=== PATIENT | male | born 1990 | race Caucasian/White ===

== ENCOUNTER 2021-01-10 11:50 | Emergency (ER) | payer OTHER, SELFPAY ==
[2021-01-10 12:05] VITALS: BP 142/84; PULSE 79; RESP 18; TEMP 37; O2SAT 98; BMI 43.5
--- NOTE | 2021-01-10 12:38 | HMH.EDUTC ---
[facility] Disposition Clinical Impression: Nausea & vomiting Qualifiers: Vomiting type: unspecified Vomiting Intractability: unspecified Qualified Code(s): R11.2 - Nausea with vomiting, unspecified Disposition: Home, Self-Care Condition on Discharge: Good Instructions: Nausea and Vomiting-Adult, Diarrhea, Ondansetron, Dicyclomine Additional Instructions: ? Avoid fruit juices, as these do not replace minerals and can actually increase diarrhea. ? Children and adults can use sports drinks to replenish electrolytes. Younger children and infants should use products formulated for children, like oral rehydration solutions. ? Eat food in small amounts and let your stomach recover. ? Get lots of rest. You may feel tired or weak. ? No greasy or fried foods for the next 24-48 hours BRAT diet Bananas Rice Apples and [place] ? Make sure to drink plenty of liquids ? Return if needed ? Straight to ER if any life threatening symptoms ? Zofran as prescribed ? You was given an outpatient order for diarrhea panel, please collect specimen and bring back to outpatient lab then call back to the [facility] or follow up with family doctor for results ? Follow up with family doctor in the next 48-72 hours if no improvement or any worsening of symptoms Prescriptions: Dicyclomine HCl [Bentyl 10mg capsule] 10 mg PO TID PRN #15 cap PRN Reason: Cramping Transmission Status: Pending to [facility] # ondansetron HCL [Ondansetron 8mg tab*] 8 mg PO TIDP PRN #12 tab PRN Reason: Nausea Transmission Status: Pending to [facility] # Referrals: PCP,No [Primary Care Provider] - As needed Forms: Work/School Release Time of Disposition: 13:27 Medical Decision Making - Roland Inquiry Pt receiving controlled substance: No Roland was queried for this patient: No Vital Signs: 01/10/21 12:05 Temperature 98.6 F Temperature Source Oral Pulse Rate [Right Brachial] 79 Respiratory Rate 18 Blood Pressure [Right Arm] 142/84 H Blood Pressure Mean [Right Arm] 103 Blood Pressure Source [Right Arm] Automatic Cuff Blood Pressure Position [Right Arm] Sitting 02 Sat by Pulse Oximetry 98 Oxygen Delivery Method Room Air Orders (Tests/Meds): ED MEDICATIONS Discontinued Medications Generic Name Dose Route Start Last Admin Trade Name Freq PRN Reason Stop Dose Admin Dicyclomine HCl 10 mg 01/10/21 12:38 01/10/21 12:44 Dicyclomine 10mg Capsule PO 01/10/21 12:39 10 mg ONCE ONE Administration Ondansetron HCl 4 mg 01/10/21 12:38 01/10/21 12:44 Ondansetron 4mg Odt SL 01/10/21 12:39 4 mg ONCE ONE Administration Medical Decision Narrative: Patient state that he is feeling much better after medication [facility] HPI - General Stated complaint: Nausea; stomach pain Time Seen by Provider: 01/10/21 12:38 Mode of Arrival: Ambulatory Source of Information: Patient Limitations: No Limitations Description of Symptoms (Recalled from Triage Doc. by RN): PATIENT C/O NAUSEA, VOMITING, AND ABDOMINAL CRAMPING SINCE 0300 THIS AM HEENT Symptoms (Recalled from RN notes): No Resp Symptoms (Recalled from RN notes): No Skin Symptoms (Recalled from RN notes): No MS Symptoms (Recalled from RN notes): No Functional Status (Recalled from RN notes): WNL - History of Present Illness Provider Complaint: Patient state that he has been having some nausea and vomiting along with cramping like feeling in his upper abdominal area since about 6am this morning State that he hasnt had any diarrhea yet but cramping like he may have to go soon States that he also has GERD but not taking any medications at this time - Related Data Previous Rx's Medication Instructions Recorded hydroxyzine pamoate 25 mg capsule 25 mg PO DAILY PRN #30 cap 12/05/17 Cyclobenzaprine HCl [Flexeril 10mg 10 mg PO TIDP PRN #30 tablet 11/16/18 tablet] Ibuprofen [Ibuprofen 600mg 600 mg PO Q6HP PRN #40 tab 11/16/18 Tablet] Dicyclomine HCl [Bentyl 10mg 10 mg PO T
[2021-01-10 13:34] VITALS: BP 142/84; PULSE 79; RESP 18; TEMP 37; O2SAT 98
== END 2021-01-10 13:40 | disposition home or self-care (01) ==
PROVIDERS: Emergency Provider Nurse Practitioner
DX: R11.2 Nausea with vomiting, unspecified (principal); K21.9 Gastro-esophageal reflux disease without esophagitis; F41.8 Other specified anxiety disorders; F17.210 Nicotine dependence, cigarettes, uncomplicated; Z88.0 Allergy status to penicillin; Z88.2 Allergy status to sulfonamides
CPT/HCPCS: 99202; G0463

== ENCOUNTER → 2021-01-10 16:01 | Outpatient (CLI) | payer OTHER, SELFPAY ==
[2021-01-10 16:05] LABS: Adenovirus F 40/41, stool Not Detected (NotDetected); Astrovirus Not Detected (NotDetected); Campylobacter Not Detected (NotDetected); Clostridium Difficile A/B, PCR Not Detected (NotDetected); Cryptosporidium Not Detected (NotDetected); Cyclospora Cayetanesis Not Detected (NotDetected); Entamoeba histolytica Not Detected (NotDetected); Enteroaggregative E coli Not Detected (NotDetected); Enteropathogenic E coli Not Detected (NotDetected); Enterotoxigenic E coli Not Detected (NotDetected); Giardia lamblia Not Detected (NotDetected); Plesimonas Shigalloides, PCR Not Detected (NotDetected); Rotavirus A Not Detected (NotDetected); Salmonella, PCR Not Detected (NotDetected); Sapovirus Not Detected (NotDetected); Shiga-like toxin E coli Not Detected (NotDetected); Shigella Enterovasive E coli Not Detected (NotDetected); Vibrio Cholerae Not Detected (NotDetected); Vibrio, PCR Not Detected (NotDetected); Yersinia Entercolitica, PCR Not Detected (NotDetected)
[2021-01-10 19:34] LABS: Norovirus Detected (NotDetected)
== END ==
PROVIDERS: Visit Provider Nurse Practitioner
DX: R19.7 Diarrhea, unspecified (principal); A08.11 Acute gastroenteropathy due to Norwalk agent
CPT/HCPCS: 87507

== ENCOUNTER → 2021-11-01 14:53 | Outpatient (CLI) | payer OTHER, SELFPAY | PROVIDERS: Visit Provider Nurse Practitioner Family | DX: Z20.822 Contact with and (suspected) exposure to COVID-19 (principal) | CPT/HCPCS: 87275; 87276; C9803; U0003; U0005 ==

== ENCOUNTER → 2021-11-06 13:28 | Outpatient (CLI) | payer OTHER, SELFPAY | PROVIDERS: Visit Provider Nurse Practitioner | DX: Z20.822 Contact with and (suspected) exposure to COVID-19 (principal) | CPT/HCPCS: C9803; U0003; U0005 ==

== ENCOUNTER 2022-04-01 12:53 | Emergency (ER) | payer OTHER, SELFPAY ==
[2022-04-01 14:06] VITALS: BP 123/87; PULSE 85; RESP 17; TEMP 37.1; O2SAT 98; BMI 43.0
--- NOTE | 2022-04-01 14:32 | HMH.EDUTC ---
[facility] [place] Clinical Impression: Stye Qualifiers: Laterality: left Eyelid: upper Qualified Code(s): H00.014 - Hordeolum externum left upper eyelid Disposition: Home, Self-Care Condition on Discharge: Good Instructions: DI for Hordeolum, Hordeolum, Erythromycin Ophthalmic Additional Instructions: 1. Use warm compress... 2. Clean your eyelid with mild soap and water... 3. You may Use a warm tea bag this may help area come to head 4. Take [id number] painkillers like Motrin and/or Tylenol as directed on package 5. Avoid wearing contact lenses... 6. Use antibiotic ointments as prescribed 7. Massage the area to promote drainage... If no improvement follow up with the Eye Doctor for further evaluation and treatment Prescriptions: Erythromycin Base [Erythromycin 1gm opth ointment] 1 applic OP QID 7 Days #2 gm Transmission Status: Pending to [facility] #[id number] Referrals: Provider,Referral, MD [Primary Care Provider] - As needed Time of Disposition: 14:45 Medical Decision Making - Roland Inquiry Pt receiving controlled substance: No Roland was queried for this patient: No Vital Signs: 04/01/22 14:06 Temperature 98.7 F Temperature Source Oral Pulse Rate [Left Radial] 85 Respiratory Rate 17 Blood Pressure [Right Arm] 123/87 Blood Pressure Mean [Right Arm] 99 02 Sat by Pulse Oximetry 98 [facility] HPI - General Stated complaint: redness, swelling lt eye Time Seen by Provider: 04/01/22 14:32 Source of Information: Patient, Parent(s) Description of Symptoms (Recalled from Triage Doc. by RN): patient comes in today with his mother. patient complains of left swollen eye lid. began 2-3 days ago HEENT Symptoms (Recalled from RN notes): Yes Resp Symptoms (Recalled from RN notes): No Skin Symptoms (Recalled from RN notes): Yes MS Symptoms (Recalled from RN notes): No Functional Status (Recalled from RN notes): wnl - History of Present Illness Provider Complaint: Patient states that he has been having swelling and redness in his left upper eyelid for 2-3 days States that it has continued to get worse so today he came in - Related Data Previous Rx's Medication Instructions Recorded hydroxyzine pamoate 25 mg capsule 25 mg PO DAILY PRN #30 cap 12/05/17 Cyclobenzaprine HCl [Flexeril 10mg 10 mg PO TIDP PRN #30 tablet 11/16/18 tablet] Ibuprofen [Ibuprofen 600mg 600 mg PO Q6HP PRN #40 tab 11/16/18 Tablet] Dicyclomine HCl [Bentyl 10mg 10 mg PO TID PRN #15 cap 01/10/21 capsule] ondansetron HCL [Ondansetron 8mg 8 mg PO TIDP PRN #12 tab 01/10/21 tab*] Erythromycin Base [Erythromycin 1 applic OP QID 7 Days #2 gm 04/01/22 1gm opth ointment] Allergies Allergy/AdvReac Type Severity Reaction Status Date / Time amoxicillin Allergy Verified 04/01/22 14:08 cefaclor [From Ceclor] Allergy Verified 04/01/22 14:08 cephalexin [From Keflex] Allergy Verified 04/01/22 14:08 Penicillins Allergy Verified 04/01/22 14:08 Sulfa (Sulfonamide Allergy Verified 04/01/22 14:08 Antibiotics) - Worker's Comp Is this a Worker's Comp case?: No [facility] History - Hepatitis A Screen Attestation statement:: This patient has been screened for Hepatitis A risk factors. I have reviewed the patient's past medical history: Yes Medical History: Reports:: Anxiety, Depression Other Medical History: Reports: Other Laterality Cases: Bilateral: Tonsillectomy - Social History Smoking Status: Current every day smoker Tobacco Type: cigarettes Alcohol Intake: never Alcohol Intake Frequency:: 3 or more drinks per day Occupational Status: other Housing: house - Psychiatric History Pschychiatric History:: Reports:: Anxiety, Depression ROS Obtained: Yes All systems reviewed & no additional complaints, Yes Systems reviewed as appropriate & no additional complaints - Constitutional Constitutional: Reports system reviewed and no additional complaints, except as docu - Eyes Eyes: Repor
[2022-04-01 14:48] VITALS: BP 123/87; PULSE 85; RESP 17; TEMP 37.1
== END 2022-04-01 14:51 | disposition home or self-care (01) ==
PROVIDERS: Emergency Provider Nurse Practitioner
DX: H00.014 Hordeolum externum left upper eyelid (principal)
CPT/HCPCS: 99212; G0463

== ENCOUNTER 2022-04-06 16:39 | Emergency (ER) | payer OTHER, SELFPAY ==
[2022-04-06] VITALS (10 sets, daily range): BP systolic 127–148; BP diastolic 73–98; PULSE 79–93; RESP 16–28; TEMP 36.9; O2SAT 95–99; BMI 30.8
--- NOTE | 2022-04-06 16:46 | PC.NURSE ---
JOY VALENTINE at
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
[2022-04-06 18:26] LABS: Basophils # 0.1 K/mm3 (0-0.2); Basophils % 0.4 % (0.1-2.0); Eosinophils # 0.2 K/mm3 (0.0-0.4); Eosinophils % 0.7 % (0.1-12.0); Hematocrit 47.6 % (42.0-52.0); Hemoglobin 16.2 g/dL (14.1-18.0); Lymphocytes # 1.6 K/mm3 (0.7-4.5); Lymphocytes % 6.6 % (10-50); Mean Corpuscular Hemoglobin 31.7 pg (27.0-31.2); Mean Corpuscular Volume 93.3 fl (80-94); Mean Platelet Volume 7.6 fl (7.4-10.4); Monocytes % 4.2 % (1.7-9.3); Neutrophils # 21.1 K/mm3 (1.8-7.8); Neutrophils % 88.2 % (37.0-80.0); Platelet Count 358 K/mm3 (142-424); White Blood Count 23.9 K/mm3 (4.8-10.8)
--- NOTE | 2022-04-06 18:26 | PC.NURSE ---
pt and family updated on plan of care
[2022-04-06 18:28] LABS: MANUAL DIFFERENTIAL MANUAL DIFFERENTIAL (MANUAL DIFF)
[2022-04-06 18:30] LABS: Chloride 105 mmol/L (98-107); Potassium 3.6 mmoL/L (3.5-5.1); Sodium 139 mmol/L (136-145)
[2022-04-06 18:32] LABS: Blood Urea Nitrogen 14 mg/dl (9-20); Creatinine Clearance Estimated 148 mL/min (50-200); Estimated Glomerular Filt Rate 87 ml/min (>60); GFR (African American) 105 ML/MIN (>60)
[2022-04-06 18:33] LABS: Alanine Aminotransferase 43 U/L (12-78); Albumin Level 4.2 g/dl (3.5-5.0); Albumin/Globulin Ratio 1.4 (1.1-1.8); Alkaline Phosphatase 77 U/L (38-126); Anion Gap 11.6 mEq/L (5-15); Aspartate Amino Transferase 50 U/L (17-59); Bilirubin,Total 0.4 mg/dl (0.2-1.3); Calcium 8.9 mg/dl (8.4-10.2); Carbon Dioxide 26 mmol/L (22.0-30.0); Globulin 2.9 g/dL (1.3-3.2); Glucose 128 mg/dl (74-100); Lipase 167 U/L (23-300); Total Protein,Serum 7.1 g/dl (6.3-8.2)
--- NOTE | 2022-04-06 18:45 | PC.NURSE ---
pt updated on POC.
[2022-04-06 19:35] LABS: Hypochromasia 1+; Lymphocytes % 17 % (10-50); Monocytes % 10 % (2-9); Neutrophils % 73 % (42-76); Platelet Estimate Normal; Total Cells Counted 100
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
--- NOTE | 2022-04-06 19:41 | PC.NURSE ---
Dr. Kilo marshall for ED doctor
--- NOTE | 2022-04-06 19:46 | PC.NURSE ---
ER doctor on phone with Dr. Boateng
--- NOTE | 2022-04-06 20:07 | PC.NURSE ---
on phone with [facility] MD re: transfer of patient
[2022-04-06 20:22] LABS: Coronavirus 19, PCR Not Detected (NotDetected); Influenza A, PCR Not Detected (NotDetected); Influenza B, PCR Not Detected (NotDetected)
--- NOTE | 2022-04-06 20:31 | PC.NURSE ---
[facility] notified of patient needing transfer to [facility]
--- NOTE | 2022-04-06 20:43 | PC.NURSE ---
Gave report to ER Charge nurse Claire. [facility] notified for transfer.
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
== END 2022-04-06 21:33 | disposition short-term general hospital (02) ==
PROVIDERS: Emergency Provider Student in an Organized Health Care Education/Training Program
DX: S82.141A Displaced bicondylar fracture of right tibia, initial encounter for closed fracture (principal); S82.831A Other fracture of upper and lower end of right fibula, initial encounter for closed fracture; S82.031A Displaced transverse fracture of right patella, initial encounter for closed fracture; V87.7XXA Person injured in collision between other specified motor vehicles (traffic), initial encounter; Z23 Encounter for immunization; Z88.0 Allergy status to penicillin; Z88.1 Allergy status to other antibiotic agents; Z88.2 Allergy status to sulfonamides; F41.9 Anxiety disorder, unspecified; F32.A Depression, unspecified
CPT/HCPCS: 71045; 71260; 73502; 73560; 73590; 73700; 74177; 80053; 83690; 85007; 85025; 90471; 90715; 96374; 96375; 99284; C9803; Q9967; U0003; U0005

== ENCOUNTER 2022-04-30 15:50 | Emergency (ER) | payer OTHER, SELFPAY ==
[2022-04-30 16:05] VITALS: BP 130/84; PULSE 89; RESP 18; TEMP 36.9; O2SAT 97; BMI 42.0
--- NOTE | 2022-04-30 16:18 | HMH.EDUTC ---
[facility] Disposition Clinical Impression: Vertigo Disposition: Home, Self-Care Condition on Discharge: Good Instructions: Vertigo, Meclizine Additional Instructions: Slow steady movements and make sure to sit up slowly and allow legs to dangle before standing to help with dizziness Take medication as prescribed Follow up with your Family Doctor if no improvement or any worsening of symptoms Straight to ER if any life threatening symptoms Return if needed Prescriptions: Meclizine HCl [Antivert 25mg tablet] 25 mg PO Q8HP PRN #12 tab PRN Reason: Vertigo Transmission Status: Pending to [id number] Referrals: Provider,Referral, [Primary Care Provider] - As needed Time of Disposition: 16:28 Medical Decision Making - Roland Inquiry Pt receiving controlled substance: No Roland was queried for this patient: No Vital Signs: 04/30/22 16:05 Temperature 98.5 F Temperature Source Temporal Artery Scan Pulse Rate [Right Brachial] 89 Respiratory Rate 18 Blood Pressure [Right Arm] 130/84 Blood Pressure Mean [Right Arm] 99 Blood Pressure Source [Right Arm] Automatic Cuff Blood Pressure Position [Right Arm] Sitting 02 Sat by Pulse Oximetry 97 Oxygen Delivery Method Room Air Orders (Tests/Meds): ED MEDICATIONS Discontinued Medications Generic Name Dose Route Start Last Admin Trade Name Freq PRN Reason Stop Dose Admin Meclizine HCl 25 mg 04/30/22 16:21 04/30/22 16:23 Meclizine 25mg Tablet PO 04/30/22 16:22 25 mg ONCE ONE Administration Medical Decision Narrative: Patient states that he has had vertigo in the past and this feels like it did then and has taken Meclizine in the past without reactions or complications [facility] HPI - General Stated complaint: dizzy Time Seen by Provider: 04/30/22 16:18 Mode of Arrival: Ambulatory Source of Information: Patient Limitations: No Limitations Description of Symptoms (Recalled from Triage Doc. by RN): PATIENT C/O DIZZINESS X 2 DAYS. HE STATES IT STARTED 2 DAYS AFTER HE STOPPED HIS GABAPENTIN. HE REPORTS DIZZINESS IS WORSE IN AM AND SOMETIMES IS ACCOMPANIED WITH NAUSEA HEENT Symptoms (Recalled from RN notes): Yes Resp Symptoms (Recalled from RN notes): No Skin Symptoms (Recalled from RN notes): No MS Symptoms (Recalled from RN notes): No Functional Status (Recalled from RN notes): WNL - History of Present Illness Provider Complaint: Patient states that he has been treated in the past for Vertigo States that for the last couple of days he has been having dizziness/vertigo when he gets up in the morning or when he makes sudden position changes or bends over and feels like the room is spinning around him States that he recently had surgery and was on Gabapentin for about a month and they recently stopped it and dizziness started about 2 days later - Related Data Previous Rx's Medication Instructions Recorded hydroxyzine pamoate 25 mg capsule 25 mg PO DAILY PRN #30 cap 12/05/17 Cyclobenzaprine HCl [Flexeril 10mg 10 mg PO TIDP PRN #30 tablet 11/16/18 tablet] Ibuprofen [Ibuprofen 600mg 600 mg PO Q6HP PRN #40 tab 11/16/18 Tablet] Dicyclomine HCl [Bentyl 10mg 10 mg PO TID PRN #15 cap 01/10/21 capsule] ondansetron HCL [Ondansetron 8mg 8 mg PO TIDP PRN #12 tab 01/10/21 tab*] Erythromycin Base [Erythromycin 1 applic OP QID 7 Days #2 gm 04/01/22 1gm opth ointment] Meclizine HCl [Antivert 25mg 25 mg PO Q8HP PRN #12 tab 04/30/22 tablet] Allergies Allergy/AdvReac Type Severity Reaction Status Date / Time amoxicillin Allergy Verified 04/01/22 14:08 cefaclor [From Ceclor] Allergy Verified 04/01/22 14:08 cephalexin [From Keflex] Allergy Verified 04/01/22 14:08 Penicillins Allergy Verified 04/01/22 14:08 Sulfa (Sulfonamide Allergy Verified 04/01/22 14:08 Antibiotics) - Worker's Comp Is this a Worker's Comp case?: No [facility] History - Hepatitis A Screen Attestation statement:: This patient has been screene
[2022-04-30 16:36] VITALS: BP 130/84; PULSE 89; RESP 18; TEMP 36.9; O2SAT 97
== END 2022-04-30 16:40 | disposition home or self-care (01) ==
PROVIDERS: Emergency Provider Nurse Practitioner
DX: R42 Dizziness and giddiness (principal)
CPT/HCPCS: 99212; G0463

== ENCOUNTER → 2022-12-25 15:23 | Outpatient (CLI) | payer OTHER, SELFPAY ==
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
[2022-12-25 18:52] LABS: Basophils # 0.1 K/mm3 (0-0.2); Basophils % 1.3 % (0.1-2.0); Eosinophils # 0.1 K/mm3 (0.0-0.4); Eosinophils % 1.4 % (0.1-12.0); Hematocrit 49.1 % (42.0-52.0); Hemoglobin 16.7 g/dL (14.1-18.0); Lymphocytes # 2.4 K/mm3 (0.7-4.5); Lymphocytes % 27.6 % (10-50); Mean Corpuscular Hemoglobin 30.9 pg (27.0-31.2); Mean Corpuscular Volume 90.6 fl (80-94); Mean Platelet Volume 8.3 fl (7.4-10.4); Monocytes # 0.6 K/mm3 (0.1-1.0); Monocytes % 7.3 % (1.7-9.3); Neutrophils # 5.5 K/mm3 (1.8-7.8); Neutrophils % 62.5 % (37.0-80.0); Platelet Count 328 K/mm3 (142-424); Red Blood Count 5.42 M/mm3 (4.60-6.20); Red Cell Distribution Width 13.8 % (11.5-17.5); White Blood Count 8.8 K/mm3 (4.8-10.8)
[2022-12-25 18:55] LABS: Alanine Aminotransferase 43 U/L (12-78); Albumin Level 4.5 g/dl (3.5-5.0); Albumin/Globulin Ratio 1.5 (1.1-1.8); Alkaline Phosphatase 76 U/L (38-126); Anion Gap 5.3 mEq/L (5-15); Aspartate Amino Transferase 40 U/L (17-59); Bilirubin,Total 0.8 mg/dl (0.2-1.3); Blood Urea Nitrogen 15 mg/dl (9-20); Calcium 9.2 mg/dl (8.4-10.2); Carbon Dioxide 27 mmol/L (22.0-30.0); Chloride 108 mmol/L (98-107); Chol/HDL Ratio 6.4 (1-3.5); Cholesterol 261 mg/dl (140-200); Estimated Glomerular Filt Rate 98 ml/min (>60); GFR (African American) 119 ML/MIN (>60); Glucose 91 mg/dl (74-100); HDL Cholesterol 41 mg/dl (40-60); Potassium 4.3 mmoL/L (3.5-5.1); Sodium 136 mmol/L (136-145); Total Protein,Serum 7.5 g/dl (6.3-8.2); Triglycerides 300 mg/dl (30-150); VLDL Cholesterol 60 mg/dL (0-40)
[2022-12-25 19:07] LABS: Direct LDL Cholesterol 147.17 mg/dL (100-129)
[2022-12-25 19:08] LABS: Hemoglobin A1C 4.9 % (4.0-6.0)
[2022-12-25 19:12] LABS: 25-OH Vitamin D, Total 15.8 ng/mL (30-100)
[2022-12-25 19:26] LABS: Thyroid Stimulating Hormone 2.53 uIU/mL (0.465-4.68)
[2022-12-25 19:45] LABS: Vitamin B12 353 pg/mL (239-931)
== END ==
PROVIDERS: PCP Physician Assistant; Visit Provider Physician Assistant
DX: R07.89 Other chest pain (principal); R42 Dizziness and giddiness; M54.50 Low back pain, unspecified
CPT/HCPCS: 71120; 72110; 80053; 80061; 82306; 82607; 83036; 84443; 85025

== ENCOUNTER 2023-01-14 13:47 | Outpatient (RCR) | payer OTHER, SELFPAY ==
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
== END 2023-01-14 13:50 | disposition home or self-care (01) ==
LOC: PT 13:47
PROVIDERS: PCP Physician Assistant; Visit Provider Physician Assistant
DX: M54.50 Low back pain, unspecified (principal)
CPT/HCPCS: 97163

== ENCOUNTER → 2023-06-26 08:26 | Outpatient (CLI) | payer OTHER, SELFPAY ==
--- NOTE | 2023-06-26 08:26 | MR_ITS ---
FINAL REPORT CLINICAL HISTORY: burning, shooting pain in neck COMPARISON: None FINDINGS: Multi planar MR imaging was obtained of the cervical spine. There is abnormal decreased signal throughout the cervical discs. The vertebrae are of normal height. There is mild reversal of the normal lordosis of the cervical spine, which may be positional or due to muscle spasm. The cervical cord demonstrates normal signal and configuration, with a prominent central canal. C2-C3: There is no evidence of significant disc bulge or protrusion. There is no significant facet hypertrophy. C3-C4: There is no evidence of significant disc bulge or protrusion. There is no significant facet hypertrophy. C4-C5: There is no evidence of significant disc bulge or protrusion. There is no significant facet hypertrophy. C5-C6: There is a mild diffuse annular bulge. No canal or neural foraminal narrowing is present. C6-C7: There is a moderate right paracentral disc protrusion which produces moderate right sided canal narrowing. C7-T1: There is no evidence of significant disc bulge or protrusion. There is no significant facet hypertrophy. IMPRESSION: C6-7 moderate right paracentral disc protrusion producing moderate right canal stenosis. Reviewed, Interpreted and Dictated by Raleigh Damon MD Transcribed by Margarette Conroy Authenticated and [facility]
--- NOTE | 2023-06-26 08:26 | MR_ITS ---
FINAL REPORT CLINICAL HISTORY: lumbar radiculopathy COMPARISON: None FINDINGS: Multiplanar MR imaging of the lumbar spine was performed without contrast. On the sagittal T2-weighted images, there is normal signal throughout the lumbar discs. The vertebrae are of normal height. The vertebral alignment is normal. L1-2: There is no significant canal stenosis or neural foraminal narrowing. L2-3: There is no significant canal stenosis or neural foraminal narrowing. L3-4: There is no significant canal stenosis or neural foraminal narrowing. L4-5: There is no significant canal stenosis or neural foraminal narrowing. L5-S1: There is no significant canal stenosis or neural foraminal narrowing. IMPRESSION: There is no significant canal stenosis or neural foraminal narrowing. Reviewed, Interpreted and Dictated by Raleigh Damon MD Transcribed by Margarette Conroy Authenticated and [facility]
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
== END ==
PROVIDERS: PCP Physician Assistant; Visit Provider Physician Assistant
DX: M54.12 Radiculopathy, cervical region (principal); M51.16 Intervertebral disc disorders with radiculopathy, lumbar region; R22.2 Localized swelling, mass and lump, trunk
CPT/HCPCS: 71250; 72141; 72148; 76376

== ENCOUNTER 2023-06-29 14:32 | Emergency (ER) | payer OTHER, SELFPAY ==
[2023-06-29 14:33] VITALS: BP 131/89; PULSE 95; RESP 18; TEMP 36.9; O2SAT 99; BMI 49.4
[2023-06-29 14:36] VITALS: BP 131/89; PULSE 95; O2SAT 97
[2023-06-29 15:01] VITALS: BP 112/75; PULSE 84; O2SAT 96
--- NOTE | 2023-06-29 15:15 | XR_ITS ---
PROCEDURE INFORMATION: Exam: XR Left Tibia and Fibula Exam date and time: 06/29/2023 3:29 PM Age: 33 years old Clinical indication: Pain; Lower leg; Left TECHNIQUE: Imaging protocol: Radiologic exam of the left tibia and fibula. Views: 2 views. COMPARISON: CR XR KNEE LT 2V 04/06/2022 4:59 PM FINDINGS: Bones/joints: There is no evidence of acute fracture.There is no evidence of malalignment or dislocation. Soft tissues: Normal. IMPRESSION: There is no evidence of acute fracture.There is no evidence of malalignment or dislocation.
--- NOTE | 2023-06-29 15:15 | XR_ITS ---
PROCEDURE INFORMATION: Exam: XR Left Knee Exam date and time: 06/29/2023 3:29 PM Age: 33 years old Clinical indication: Pain; Knee; Left; Additional info: Left knee pain TECHNIQUE: Imaging protocol: Radiologic exam of the left knee. Views: 3 views. COMPARISON: CR XR KNEE LT 2V 04/06/2022 4:59 PM FINDINGS: Bones/joints: There is no evidence of acute fracture.There is no evidence of malalignment or dislocation. Soft tissues: Normal. IMPRESSION: There is no evidence of acute fracture.There is no evidence of malalignment or dislocation.
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
--- NOTE | 2023-06-29 15:26 | PC.NURSE ---
Rounded on patient; call oakes within reach of patient
[2023-06-29 15:30] VITALS: BP 118/75; PULSE 85; O2SAT 97
--- NOTE | 2023-06-29 15:35 | PC.NURSE ---
xray at [facility]
--- NOTE | 2023-06-29 15:54 | PC.NURSE ---
Dr. Glass at [facility] to update pt
[2023-06-29 15:57] VITALS: BP 118/75; PULSE 84; RESP 18; TEMP 36.9; O2SAT 98
== END 2023-06-29 15:59 | disposition home or self-care (01) ==
PROVIDERS: Emergency Provider Emergency Medicine; PCP Physician Assistant
DX: M25.562 Pain in left knee (principal); F17.210 Nicotine dependence, cigarettes, uncomplicated; X50.0XXA Overexertion from strenuous movement or load, initial encounter
CPT/HCPCS: 73562; 73590; 99283

== ENCOUNTER → 2023-07-17 09:33 | Outpatient (CLI) | payer OTHER, SELFPAY ==
--- NOTE | 2023-07-17 09:41 | MR_ITS ---
FINAL REPORT CLINICAL HISTORY: left knee pain and catching COMPARISON: None FINDINGS: Multi planar MR imaging was performed of the left knee. The anterior and posterior cruciate ligaments are intact. The quadriceps and patellar tendons are intact. There is an oblique tear of the posterior horn of the medial meniscus, best seen on image #10 of series 4. The lateral meniscus is intact. The medial and lateral collateral ligaments appear intact. The medial and lateral retinacula appear intact. There is no evidence of bone marrow edema or osteochondral defect. No evidence of soft tissue inflammatory reaction. IMPRESSION: Oblique tear posterior horn medial meniscus. Reviewed, Interpreted and Dictated by Raleigh Damon MD Transcribed by Margarette Conroy Authenticated and [facility]
== END ==
PROVIDERS: PCP Physician Assistant; Visit Provider Physician Assistant
DX: M25.562 Pain in left knee (principal)
CPT/HCPCS: 73721

== ENCOUNTER → 2023-07-18 09:50 | Outpatient (CLI) | payer OTHER, SELFPAY ==
--- NOTE | 2023-07-18 09:53 | US_ITS ---
FINAL REPORT CLINICAL HISTORY: diarrhea after eating COMPARISON: None FINDINGS: Sonographic images of the right upper quadrant were obtained. The pancreas is partially obscured.The liver has an unremarkable appearance.The gallbladder appears normal without evidence of gallstones.There is no evidence of biliary ductal dilatation.The common duct measures 4mm. Limited images of the right kidney are unremarkable. IMPRESSION: Unremarkable right upper quadrant ultrasound. Reviewed, Interpreted and Dictated by Raleigh Damon MD Transcribed by Margarette Conroy Authenticated and [facility]
== END ==
PROVIDERS: PCP Physician Assistant; Visit Provider Physician Assistant
DX: R19.7 Diarrhea, unspecified (principal)
CPT/HCPCS: 76705

== ENCOUNTER → 2023-07-18 14:53 | Outpatient (POV) | payer OTHER, SELFPAY ==
[2023-07-18 15:35] VITALS: BP 128/90; PULSE 86; RESP 18; O2SAT 94; BMI 48.2
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
== END | disposition home or self-care (01) ==
PROVIDERS: PCP Physician Assistant; Visit Provider Nurse Practitioner Family
DX: M50.10 Cervical disc disorder with radiculopathy, unspecified cervical region (principal); R20.0 Anesthesia of skin; M54.42 Lumbago with sciatica, left side; M54.41 Lumbago with sciatica, right side; G89.29 Other chronic pain; M25.561 Pain in right knee; M25.562 Pain in left knee; M46.1 Sacroiliitis, not elsewhere classified
CPT/HCPCS: 99202; G0463

== ENCOUNTER 2023-09-26 14:30 | Outpatient (RCR) | payer OTHER, SELFPAY ==
--- NOTE | 2023-08-09 17:55 | HMH.PTOPEV ---
PT Outpatient Evaluation Rehab PT Outpatient Evaluation Start: 08/09/23 14:29 Freq: Status: Active Protocol: Document 08/09/23 17:38 RASHID (Rec: 08/09/23 17:54 RASHID [id number]) E-signed By Getachew Morris, PT Outpatient Therapy Subjective History Subjective History Patient is a 33 year old male presenting to outpatient PT with reports of sub-acute cervical spine pain with RUE radicular symptoms of insidious onset starting approx 2 months ago. Most recent imaging indicates C 6/7 bulging disc. Comorbidities include hx of HL, R tibial plateau fracture/ORIF and elevated BMI. New diagnosis of cancer in past 12 No months? Chief Complaint Pain,Stiff,Paresthesia Symptom Type Ache,Burning,Numbness,Tingling Symptoms Relieved By Rest/Positioning Symptoms Aggravated By Sitting,Standing,Physical Activity,Walking,Lifting Prior Functional Limitations None Current Functional Limitations Reaching,Lifting,Housework, Sleeping,Standing,Sitting, Recreation Activity,Walking Level of pain today (0-10) 3 Pain scale - at its best (0-10) 2 Pain scale - at its worst (0-10) 8 Cervical Eval Palpation Cervical Muscles R Cervical Paraspinal,L Cervical Paraspinal,R CT Junction,L CT Junction,R Upper Trapezius,L Upper Trapezius Cervical/Thoracic Palpation Findings Tenderness Posture Head/C-Spine Posture Sitting Position C-Spine Flattened Head/C-Spine Posture Standing Position C-Spine Flattened Flexibility Deficits Upper Trapezius Muscle Length (R) Moderate Tightness,(L) Moderate Tightness Levaetor Scapulae Muscle Length (R) Moderate Tightness,(L) Moderate Tightness Pectoralis Minor Muscle Length (R) Moderate Tightness,(L) Moderate Tightness Passive Joint Mobility Cervical PIVM WNL: R OA L OA R AA L AA R C2/3 L C2/3 R C3/4 L C3/4 R C4/5 L C4/5 R C5/6 L C5/6 R C6/7 L C6/7 R C7/T1 L C7/T1 AROM Cervical Spine Extension Active Range of 28 Motion (degrees) Cervical Spine Flexion Active Range of 43 Motion (degrees) Cervical Spine Right Lateral Flexion 27 Active Range of Motion (degrees) Cervical Spine Left Lateral Flexion 38 Active Range of Motion (degrees) Cervical Spine Right Rotation Active 40 Range of Motion (degrees) Cervical Spine Left Rotation Active 40 Range of Motion (degrees) MMT Bilateral Deltoid (C5) 5 Normal Biceps Brachii Strength Grade 5 Normal Wrist Extension Strength Grade 5 Normal Triceps Brachii Strength Grade 5 Normal Wrist Flexion Strength Grade 5 Normal Extensor Pollicis Longus Strength Grade 5 Normal Finger Abduction Strength Grade 5 Normal Special Test C-Spine Foraminal Compression (Spurling) Negative Left,Positive Right Test C-Spine Foraminal Distraction Test Positive Neck Disability Index Neck Disability Index Section 1: Pain Intensity The pain is very mild at moment Section 2: Personal Care (washing, I can look after myself dressing, etc.) normally but it causes extra pain Section 3: Lifting I cannot lift or carry anything Section 4: Reading I can't read as much as I want because of moderate pain in my neck Section 5: Headaches I have no headaches at all Section 6: Concentration I have a lot of difficulty in concentrating when I want to Section 7: Work I can't do any work at all Section 8: Driving I can't drive my car at all Section 9: Sleeping My sleep is completely disturbed (5-7 hrs sleepless) Section 10: Recreation I can hardly do any recreation activities because of pain in my neck NDI Score 32 Outpatient Therapy Assessment Impairments Problems/Impairmments Palpation Tenderness,Impaired Range of Motion,Impaired Walking,Impaired Standing, Impaired Sitting,Impaired Driving,Impaired Lifting, Impaired Household Care, Impaired Recreational Activities,Impaired Work Activities,Subjective C/O Pain Prognosis Rehab Potential Good Clinical Impression Consistent with Diagnosis No Short Term Goals Number of Weeks 2 Decrease Subjective C/O Pain Yes: 10 at worst Patient to be Ind w/ HEP Yes Rechecker Goals Number of Weeks 4-6 Decreased Palpation Tenderness Yes: 1/4 Increase Range of Motion Yes: WNL Increase Ability to Walk Yes: 1 hr without difficulty Increase Ability to Stand Yes Increase Ability to Sit Yes Restore Ability to Lift Objects to Yes: 20 lbs without difficulty Shoulder Level Restore Ability to Lift Objects Overhead Yes Decrease Subjective C/O Pain Yes: 2/10 at worst Outpatient Therapy Plan of Care Treatment Plan May Include Therapeutic Exercise Including Home Yes Exercise Program Manual Therapy Techniques Yes Neuromuscular Re-education Yes Therapeutic Activities to Return to Yes Previous Functional/Work Level ADL/Self Care Education Yes Mechanical Traction Yes Dry Needling Yes Thermal Modalities Yes Electrical Stimulation Yes Ultrasound/Phonophoresis Yes Iontophoresis Yes Massage Yes Eval/Re-Eval Yes Frequency Times per week 2 Duration Number of Weeks 4-6 Addendums This patient is a candidate for social No or vocational rehab? Patient/Guardian verbally acknowledges Yes understanding of treatment program and consents to further treatment? Patient/Guardian verbally acknowledges Yes understanding of diagnosis, prognosis and goals for treatment? Eval Complexity PT Charges 67657 - Moderate Complexity Shoulder/Elbow Eval Shoulder Objective Measurements Elbow Objective Measurements PHYSICIAN CERTIFICATION: I certify the specified therapy services for Eladio Zayas are required, authorized, and reviewed every 30 days.
--- NOTE | 2023-09-11 11:44 | HMH.RHREAS ---
Rehab Reassessment Rehab OP Re-assessment Start: 08/09/23 14:29 Freq: Status: Active Protocol: Document 09/10/23 15:30 RASHID (Rec: 09/11/23 11:27 RASHID [id number]) E-signed By Getachew Morris, PT Neck Disability Index Neck Disability Index Section 1: Pain Intensity The pain is moderate at the moment Section 2: Personal Care (washing, It is painful to look after dressing, etc.) myself and I am slow and careful Section 3: Lifting Pain prevents me from lifting heavy weights, but I can manage light to Section 4: Reading I can read as much as I want with moderate pain in my neck Section 5: Headaches I have no headaches at all Section 6: Concentration I have a fair degree of difficulty in concentrating when I want to Section 7: Work I can hardly do any work at all Section 8: Driving I can drive my car as long as I want with slight pain in my neck Section 9: Sleeping My sleep is completely disturbed (5-7 hrs sleepless) Section 10: Recreation I am able to engage in a few of my usual recreation activities because NDI Score 24 Rehab Re-assessment Subjective Subjective Patient reports no change in symptoms since initial evaluation. Objective Objective Notes AROM: flx 32; ext 34; SBr 38; SBl 26; Rr 42; Rl 45 Myotomes: WNL Pain: 5/10 today; 8/10 at worst over past week Neuro: WNL Assessment Progress Assessment No Progress Assessment Notes Today is the first follow up visit from initial evaluation secondary to scheduling conflicts. Patient set up with initial HEP today. Patient would benefit from continuing with skilled PT interventions in order to address functional limitations reaching, lifting and driving activities. Patient goals met None Goals Not Met All Revised Goals NA Plan Plan Continue with current POC. Frequency of Therapy 2x/week Duration of therapy 4 weeks Time and Billing Re-Eval Time 14 Re-Eval Billing Units 1 PHYSICIAN CERTIFICATION: I certify the specified therapy services for Eladio Zayas are required, authorized, and reviewed every 30 days.
== END 2023-09-26 15:26 | disposition home or self-care (01) ==
LOC: PT 14:30
PROVIDERS: PCP Physician Assistant; Visit Provider Physician Assistant
DX: M54.2 Cervicalgia (principal); M50.20 Other cervical disc displacement, unspecified cervical region
CPT/HCPCS: 97010; 97012; 97014; 97110; 97163; 97164; G0283